=== PATIENT | male | born 1990 | race Two or more races ===

== ENCOUNTER 2018-12-11 12:12 | Inpatient (IN) | payer MEDICAID, OTHER | END 2018-12-16 14:59 | disposition home or self-care (01) | LOC: CENTRAL 12-14 08:07 → ER 12:12 → TELE-CENTR 12-12 23:21 → TELE 17:30 | DX: G92 Toxic encephalopathy (principal); D89.9 Disorder involving the immune mechanism, unspecified; E87.1 Hypo-osmolality and hyponatremia; F20.9 Schizophrenia, unspecified; F20.2 Catatonic schizophrenia; E87.6 Hypokalemia; E16.2 Hypoglycemia, unspecified; F31.9 Bipolar disorder, unspecified; F17.200 Nicotine dependence, unspecified, uncomplicated; F29 Unspecified psychosis not due to a substance or known physiological condition; Z79.899 Other long term (current) drug therapy; F15.90 Other stimulant use, unspecified, uncomplicated ==